=== PATIENT | female | born 1965 | race Caucasian/White ===

== ENCOUNTER 2017-08-11 07:31 | Outpatient (CLI) | payer BC ==
[~2017-08-11] VITALS: Ht 172.8 cm; Wt 46.4 kg
[2017-08-11] MEDS ORDERED: ZOCOR 20MG20 MG PO (07:42)
[2017-08-11] MEDS ORDERED: ASPIRIN E.C. 8181 MG PO (07:42)
[2017-08-11] MEDS ORDERED: PLAVIX 75MG TAB75 MG PO (07:42)
[2017-08-11 08:15] VITALS: BP 124/80; PULSE 79; TEMP 98.5
[2017-08-11 08:18] LABS: INR 1.1 (0.8-3.0); PROTHROMBIN TIME 12.2 SECONDS (9.7-12.8)
[2017-08-11 08:31] LABS: HEMOGLOBIN 14.3 g/dl (12.5-16.0); MEAN CELL VOLUME 93 fl (80.0-100.0); MEAN CORPUSCULAR HEMOGLOBIN 32 pg (27.0-31.0); MEAN CORPUSCULAR HGB CONC 34 g/dl (33.0-37.0); MEAN PLATELET VOLUME 9.4 fl (7.4-10.4); PLATELET COUNT 337 K/mm3 (130-400); RED BLOOD COUNT 4.52 M/mm3 (4.10-5.30); REDCELL DISTRIBUTION WIDTH-CV 13.4 % (11.5-14.5)
[2017-08-11 08:37] LABS: CALCIUM 9.1 mg/dL (8.4-10.2); CREATININE, serum 0.54 mg/dL (0.52-1.25); POTASSIUM 4.3 mmol/L (3.4-5.0)
[2017-08-11 09:45] VITALS: BP 104/72; PULSE 86
[2017-08-11 10:00] VITALS: BP 115/78; PULSE 81
[2017-08-11 10:15] VITALS: BP 110/80; PULSE 83; TEMP 98.4
[2017-08-11 10:30] VITALS: BP 113/77; PULSE 78
== END 2017-08-11 11:10 | disposition home or self-care (01) ==
LOC: COL.RAD 07:31
PROVIDERS: Internal Medicine Interventional Cardiology
DX: I34.0 Nonrheumatic mitral (valve) insufficiency (principal); G45.9 Transient cerebral ischemic attack, unspecified; I83.813 Varicose veins of bilateral lower extremities with pain; I63.9 Cerebral infarction, unspecified; F17.210 Nicotine dependence, cigarettes, uncomplicated; Q21.1 Atrial septal defect
CPT/HCPCS: J2250; J3010

== ENCOUNTER → 2018-01-25 | Outpatient (CLI) | payer BC ==
[~2018-01-25] MED LIST: ASPIRIN E.C. 8181 MG PO; PLAVIX 75MG TAB75 MG PO; ZOCOR 20MG20 MG PO
[2018-01-25 08:23] LABS: TSH w REFLEX 1.69 uIU/mL (0.465-4.680)
[2018-01-25 13:05] LABS: HOMOCYSTEINE 9.4 umol/L (4.0-14.0)
== END ==
LOC: COL.RAD 07:03
PROVIDERS: Psychiatry & Neurology Neurology
DX: M47.816 Spondylosis without myelopathy or radiculopathy, lumbar region (principal)